=== PATIENT | male | born 1980 | race African-American/Black ===

== ENCOUNTER 2021-04-24 11:42 | Emergency (ER) | payer OTHER ==
[~2021-04-24] VITALS: Ht 167.6 cm; Wt 75.3 kg
--- NOTE | 2021-04-24 12:10 | NUR ---
bibmother, c/o abd pain since this morning around 6am, last vodka drink last night. On room air, breathing evenly and unlabored. Connected to the monitor and pulse ox. kept comfortable, will continue to monitor accordingly.
[2021-04-24] MEDS ORDERED: ONDANSETRON HCL/PF 4 MG/2 ML VIAL ONE (12:11)
[2021-04-24] MEDS ORDERED: MORPHINE SULFATE INJ 4 MG/ML DISP.SYRIN ONE (12:11)
[2021-04-24 12:15] LABS: BASOPHILS # (AUTO) 0.1 /CMM (0.0-0.2); BASOPHILS % (AUTO) 1.3 % (0.0-2.0); EOSINOPHILS % (AUTO) 0.4 % (0.0-6.0); HEMATOCRIT 46 % (39-51); HEMOGLOBIN 15.5 g/dL (13.5-17.5); LYMPHOCYTES # (AUTO) 0.8 /CMM (0.8-4.8); LYMPHOCYTES % (AUTO) 10.6 % (20.0-44.0); MEAN CORPUSCULAR HGB CONC 34 g/dl (31.0-36.0); MEAN CORPUSCULAR VOLUME 101 fL (80-96); MONOCYTES # (AUTO) 0.5 /CMM (0.1-1.30); NEUTROPHILS # (AUTO) 6.1 /CMM (1.8-8.9); NEUTROPHILS % (AUTO) 80.7 % (43.0-81.0); PLATELET COUNT (AUTO) 255 /CMM (150-450); RED BLOOD CELL COUNT(AUTO) 4.58 MIL/uL (4.5-6.0); WHITE BLOOD COUNT (AUTO) 7.6 K/uL (4.3-11.0)
[2021-04-24] MEDS ORDERED: IV NS 0.9% 1,000 ML BAG IV ONE ×3 (12:30→13:30)
[2021-04-24] MEDS ORDERED: ONDANSETRON HCL/PF 4 MG/2 ML VIAL IVP ONE (12:30)
[2021-04-24] MEDS ORDERED: MORPHINE SULFATE INJ 2 MG/ML DISP.SYRIN IV ONE (12:30)
[2021-04-24 12:32] LABS: CALCIUM, SERUM 8.5 mg/dL (8.5-10.1); CREATININE 0.8 mg/dL (0.6-1.3); POTASSIUM 4.1 mmol/L (3.5-5.1)
[2021-04-24 12:38] LABS: ALBUMIN 3.6 g/dL (3.4-5.0); BILIRUBIN,DIRECT 0.4 mg/dL (0.0-0.2); TOTAL PROTEIN, SERUM 7.4 g/dL (6.4-8.2)
[2021-04-24] MEDS ORDERED: HYDROMORPHONE INJ 2 MG/ML DISP.SYRIN IV ONE (13:30)
[2021-04-24] MEDS ORDERED: HYDROMORPHONE 1 MG/1 ML DISP.SYRIN ONE ×2 (13:42→18:23)
--- NOTE | 2021-04-24 14:15 | NUR ---
PT CALLED COVID RESULT NEGATIVE (-)
[2021-04-24 15:56] LABS: ACETAMINOPHEN < 0 ug/ml (10-30)
--- NOTE | 2021-04-24 16:36 | NUR ---
KAYLA CALLED FROM THE INSURANCE CALLED PLS. FAX [phone] TEL [phone]
--- NOTE | 2021-04-24 17:16 | NUR ---
Transfer Information: Accepted to: [facility] Accepting MD: Maddy Assistant Public Defender: Ana [phone] Awaiting further info (re: Bed assignment and transport)
[2021-04-24] MEDS ORDERED: HYDROMORPHONE 1 MG/1 ML DISP.SYRIN IV ONE (18:00)
--- NOTE | 2021-04-24 18:13 | NUR ---
ANSON GARZA AUTH # [id number] JOAN FROM [facility] ROOM [id number] CALL FOR REPORT [phone]
--- NOTE | 2021-04-24 18:16 | NUR ---
CALLED [facility] IS SATURATED NOT AVAILABLE UNTIL TOMORROW MORNING. PER AJ
--- NOTE | 2021-04-24 18:18 | NUR ---
FAXING FACE SHEET TO [facility] [phone] TELE [phone]
--- NOTE | 2021-04-24 18:23 | NUR ---
[facility] WILL TRANSPORT [phone] PER HUY.
--- NOTE | 2021-04-24 18:47 | NUR ---
report given to Khadra WASHINGTON for rogerio
--- NOTE | 2021-04-24 19:04 | NUR ---
report given to Roslyn WASHINGTON for rogerio
--- NOTE | 2021-04-24 19:05 | NUR ---
REC'D REPORT FROM FELIX YANES FOR NINA
[2021-04-24] MEDS ORDERED: IV NS 0.9% 1,000 ML IV ONE (19:30)
--- NOTE | 2021-04-24 21:03 | NUR ---
ADDENDUM: Intravenous End Time Documentation: Normal saline 1 liter 200 cc/ hour : infusing during transfer to another acute care hospital PIV # 18 LAC Port # : 1 Time of transfer : 2102 PM
--- NOTE | 2021-04-24 21:08 | NUR ---
TRANSPORT AT BEDSIDE REPORT GIVEN TO EMT.
[2021-04-24 21:15] VITALS: BP 150/90
== END 2021-04-24 21:20 | disposition short-term general hospital (02) ==
LOC: ER 11:48
DX: K85.90 Acute pancreatitis without necrosis or infection, unspecified (principal); B17.9 Acute viral hepatitis, unspecified; Z20.822 Contact with and (suspected) exposure to COVID-19; Z88.1 Allergy status to other antibiotic agents; K76.0 Fatty (change of) liver, not elsewhere classified
CPT/HCPCS: 36415; 76705; 80048; 80074; 80076; 80143; 80307; 80320; 83690; 85025; 87426; 96361; 96374; 96375; 96376; 99285; C9803; J1170 ×2; J2270; J2405; J7030 ×2; G0480